=== PATIENT | female | born 1960 | race Caucasian/White ===

== ENCOUNTER 2023-03-04 14:22 | Emergency (ER) | payer OTHER, SELFPAY ==
[2023-03-04 14:43] VITALS: BP 92/55; PULSE 58; RESP 16; TEMP 36.6; O2SAT 96
--- NOTE | 2023-03-04 14:56 | ED.NAVMDI ---
HPI - Nausea/Vomiting/Diarrhea General Chief complaint: Nausea/Vomiting/Diarrhea Stated complaint: nausea/diarrhea/headache Time Seen by Provider: 03/04/23 14:57 Source: patient, RN notes reviewed and old records reviewed Mode of arrival: ambulatory Limitations: no limitations History of Present Illness HPI Narrative: 62 year old female who presents to express care with complaints of nausea and vomiting since Wednesday with reports vomiting at least 5 times daily and since yesterday she has had diarrhea, Patient reports that she has had one loose stool today but had at least 4 diarrhea stools yesterday. Patient reports that she just restarted back on her Ozempic one week ago and she had been off the mediation for a mouth- and started her dose back where she was on when she stopped medication due to problems with insurance coverage. Patient reports some cramping to her abdomen but denies any acute pain and denies any fevers. MD elicited complaint: nausea, vomiting, diarrhea and other (abdominal cramping) Pertinent past history: other (diabetic) Onset (ago): day(s) (3) Description of vomiting: food contents and watery Description of diarrhea: watery Associated nausea: Yes Related Data Home Medications Medication Instructions Recorded Confirmed atorvastatin 20 mg tablet mg 03/04/23 lisinopril 20 tablet 03/04/23 mg-hydrochlorothiazide 25 mg tablet pantoprazole 40 mg tablet,delayed mg PO 03/04/23 release semaglutide 0.25 mg or 0.5 mg (2 mg subcut 03/04/23 mg/3 mL) subcutaneous pen injector (Ozempic) trazodone 100 mg tablet mg 03/04/23 Allergies Allergy/AdvReac Type Severity Reaction Status Date / Time Penicillins Allergy Unknown Verified 04/14/16 13:36 Review of Systems Review of Systems: CONSTITUTIONAL: Denies fever, chills, or sweats. EYES: Denies visual changes, redness, or discharge. ENT: Denies rhinorrhea, congestion, sore throat, or otalgia. CARDIOVASCULAR: Denies chest pain, palpitations, or edema. RESPIRATORY: Denies cough or dyspnea. GASTROINTESTINAL: Denies abdominal pain reports some cramping, reports nausea, vomiting, or diarrhea. GENITOURINARY: Denies dysuria or hematuria.po SKIN: Denies rash or itching. MUSCULOSKELETAL: Denies back pain, joint pain, or myalgia. NEUROLOGIC: States dull headache, no numbness, or weakness. PSYCHIATRIC: Denies anxiety or depression. All systems reviewed & are unremarkable except as noted in HPI and below PMFSH Past Medical History Medical History (Updated 03/05/23 @ 00:01 by Jhon Hui) Arthritis Diabetes GERD (gastroesophageal reflux disease) Hypertension Surgical History Surgical History (Updated 03/04/23 @ 15:25 by Bonita Ngo NP) H/O tubal ligation History of hysterectomy Social History Social History (Updated 03/04/23 @ 15:27 by Bonita Ngo NP) Smoking status: Never smoker Alcohol intake: unknown Substance use type: does not use Gender identity (if verbalized by the patient): Female Comments At time of signature, agree with nursing past medical, surgical, social and family history. There is no relevant family history pertinent to the presenting complaint Exam Narrative: GENERAL: Well-appearing, well-nourished, and in no acute distress. HEAD: Normocephalic, atraumatic. EYES: PERRLA and EOMI. ENT: Nares clear, no rhinorrhea or epistaxis. Mucous membranes moist.TM's normal, throat pink with no swelling NECK: Supple.no lymphadenopathy CHEST: Clear to auscultation. No respiratory distress.SAO2 96% on room air HEART: Regular rate and rhythm. No murmur heard. Normal peripheral pulses. ABDOMEN: Soft, nontender to palpation, nondistended, normal active bowel sounds.episodes of nausea with vomiting and some diarrhea EXTREMITIES: Normal range of motion. No edema. SKIN: Warm, dry, no rash. NEURO: No focal deficits. Alert and oriented x3. Course Course Emergency Course: Patient is aware of diagnosis, underst
== END 2023-03-04 15:27 | disposition home or self-care (01) ==
PROVIDERS: Emergency Provider Registered Nurse; PCP Internal Medicine
DX: K52.9 Noninfective gastroenteritis and colitis, unspecified (principal); M19.90 Unspecified osteoarthritis, unspecified site; E11.9 Type 2 diabetes mellitus without complications; K21.9 Gastro-esophageal reflux disease without esophagitis; I10 Essential (primary) hypertension
CPT/HCPCS: 99203; G0463

== ENCOUNTER 2023-05-26 08:27 | Emergency (ER) | payer OTHER, SELFPAY ==
[2023-05-26 08:34] VITALS: BP 131/67; PULSE 61; RESP 16; TEMP 37; O2SAT 97
--- NOTE | 2023-05-26 08:49 | ED.URI ---
HPI - URI/Sore Throat General Chief Complaint: Upper Respiratory Infection Stated Complaint: Chest Congestion Time Seen by Provider: 05/26/23 08:50 Source: patient, RN notes reviewed and old records reviewed Mode of arrival: ambulatory Limitations: no limitations History of Present Illness HPI Narrative: 62 year old female presents to [facility] care with complaints of sore throat, headache,left ear pain,cough, sinus congestion which now feels like it is going to her chest for the past 5 days.. Patient reports past history of bronchitis in the past and was former smoker who quit 2 months ago after smoking for 40 years. Patient has taken Robitussin and also Advil for her symptoms.Patient reports that her grandchildren have been ill also and she had been around them prior to becoming ill herself. MD elicited complaint: cough, sore throat, rhinorrhea, nasal congestion and other (headache,left ear pain) Pertinent past history: other (bronchitis) Onset (ago): day(s) (5) Severity: moderate Description of mucous: yellow Able to tolerate fluids by mouth: Yes Treatments prior to arrival: ibuprofen and other (Robitussin cough syrup) Related Data Home Medications Medication Instructions Recorded Confirmed atorvastatin 20 mg tablet 20 mg PO DAILY 03/04/23 05/26/23 lisinopril 20 1 tablet PO DAILY 03/04/23 05/26/23 mg-hydrochlorothiazide 25 mg tablet pantoprazole 40 mg tablet,delayed 40 mg PO DAILY 03/04/23 05/26/23 release trazodone 100 mg tablet 100 mg PO DAILY 03/04/23 05/26/23 Allergies Allergy/AdvReac Type Severity Reaction Status Date / Time Penicillins Allergy Unknown Swelling Verified 05/26/23 08:48 Review of Systems Review of Systems: CONSTITUTIONAL: Denies malaise, chills, sweats, or fever. EYES: Denies visual changes, redness, or discharge. ENT: Reports rhinorrhea, congestion, sinus pain, left otalgia and sore throat. CARDIOVASCULAR: Denies chest pain, palpitations, or edema. RESPIRATORY: Reports cough.? Denies dyspnea. GASTROINTESTINAL: Denies abdominal pain, nausea, vomiting, diarrhea SKIN: Denies rash or itching. MUSCULOSKELETAL: Denies myalgia. NEUROLOGIC: Reports headache. All systems reviewed & are unremarkable except as noted in HPI and below [facility] Past Medical History Medical History (Updated 05/27/23 @ 08:17 by Bonita Ngo NP) Arthritis Diabetes Emphysema lung GERD (gastroesophageal reflux disease) Hyperlipidemia Hypertension Tarsal tunnel syndrome of left side surgical repair Surgical History Surgical History (Updated 03/04/23 @ 15:25 by Bonita Ngo NP) H/O tubal ligation History of hysterectomy Social History Social History (Updated 05/27/23 @ 08:15 by Bonita Ngo NP) Smoking status: Former smoker Additional smoking assessment comments: quit 2 months ago, smoked for 40 years Alcohol intake: unknown Substance use type: does not use Gender identity (if verbalized by the patient): Female Comments At time of signature, agree with nursing past medical, surgical, social and family history. There is no relevant family history pertinent to the presenting complaint Exam Narrative: GENERAL: Well-appearing, well-nourished, and in no acute distress. HEAD: Normocephalic EYES: PERRLA, conjunctivae clear ENT: Nares clear, turbinates edematous and erythematous, yellow discharge, sinus pressure and headache. Mucous membranes moist. TM pearly rush with dull light reflex bilaterally; no tragal tenderness. Oropharynx erythematous without lesions. Tonsils not enlarged and without exudate, no drooling, no hoarseness, no trismus, uvula midline.post nasal drainage. NECK: Supple. No lymphadenopathy CHEST: Clear to auscultation, breath sounds equal. No wheezing, rhonchi, rales, or stridor. No respiratory distress, speaks in full sentences.cough noted SAO2 97% on room air HEART: Regular rate and rhythm. No murmur heard. SKIN: Warm, dry, no rash. NE
== END 2023-05-26 09:08 | disposition home or self-care (01) ==
PROVIDERS: Emergency Provider Registered Nurse; PCP Internal Medicine
DX: J06.9 Acute upper respiratory infection, unspecified (principal); R05.9 Cough, unspecified; M19.90 Unspecified osteoarthritis, unspecified site; E11.9 Type 2 diabetes mellitus without complications; K21.9 Gastro-esophageal reflux disease without esophagitis; E78.5 Hyperlipidemia, unspecified; I10 Essential (primary) hypertension; J43.9 Emphysema, unspecified
CPT/HCPCS: 99213; G0463

== ENCOUNTER 2025-03-13 08:06 | Emergency (ER) | payer OTHER, SELFPAY ==
--- OUTSIDE RECORDS SUMMARY | 2024-10-12 09:00 | XMS_ITS ---
Author Organization [facility] Address [address] [place] [address] Care Team Providers Care School Aide Name Role Phone Julito Dawson Primary Care Provider Unavailab Tana Chery Unavailable [phone] REASON FOR VISIT yd,um specialist,cc Encounters Encounter Location Date Provider Diagnosis [facility] [address] [facility] [place] [address] 10/12/2024 Tana Osborne Plan Of Treatment No Information Progress Notes * Pia DAIDOB:1960 (64 yo F)Acc No.[id number]:10/12/2024 Progress Notes Patient: Pia STEPHENSON Appointment Provider: Linda OSBORNE MD :1960 A ge:63 Y S ex:Female Date:10/12/2024 Address:[facility] [address] [place], [place] [id number] Pcp:Julito Dawson Subjective: * Chief Complaints: * 1 . Yd,um specialist,cc. * Medical History: Objective: * Vitals: Assessment: Plan: * Treatment: * Billing Information: * Visit Code: * Procedure Codes: * Electronic signature of Tana Osborne MD on 03/13/2025 at 08:09 AM CDT Sign off status: Pending * Appointment Provider: Linda OSBORNE MD Date: 10/12/2024 Generated for Lissett zaragoza/Chidi/Camryn on: 03/13/2025 08:09 AM CDT
--- OUTSIDE RECORDS SUMMARY | 2025-03-13 08:09 | XMS_ITS | Clinical Summary ---
Author Organization [facility] Address [address] [place] [address] Care Team Providers Care Traffic Controller Cable Name Role Phone Tabitha Harris-CAMP PROGRAM DIRECTOR Primary Care Provider [phone] Source Comments [facility],non-owned Affiliates and Associated Physician Practices is amultiple site organization consisting of ambulatory clinics and hospital sitesin [place], [place], [place] and [place]. This disclosure is being madepursuant to the Care Everywhere program and may not contain all information available regarding this patient. Last updated 18.[facility] Allergies Active Allergy Reactions Criticality Noted Date Comments Codeine Itching Low 10/06/2017 Latex Urticaria 04/10/2015 Penicillins Swelling 04/10/2015 Medications * Be aware that medications may not be up to date on this document. Alwaysverify current medications with the patient. OMEPRAZOLE MAGNESIUM PO Take 20.6 mg by mouth Active traZODone (DESYREL) 100 MG tablet Take 100 mg by mouth at bedtime Active PRAVASTATIN SODIUM PO Active aspirin (ASPIRIN) 81 MG tablet Take 81 mg by mouth once daily Active albuterol HFA (PROVENTIL;SAIGE TOLIN;PROAIR) 108 (90 Base) MCG/ACT inhaler Inhale 2 puffs by mouth every 4 hours as needed for Wheezing 1 Inhaler 9 Active ezetimibe (Zetia) 10 MG tablet Take 1 (one) tablet by mouth once daily 5 Active amLODIPine (Norvasc) 5 MG tablet Take 1 (one) tablet by mouth once daily Active vitamin D, ergocalciferol , (Drisdol) 1.25 MG (20916 UT) capsule TAKE 1 CAPSULE EVERY WEEK BY ORAL ROUTE. 5 Active fluticasone propionate (Flonase) 50 MCG/ACT nasal spray SPRAY 2 SPRAYS INTO EACH NOSTRIL TWICE A DAY 4 Active furosemide (Lasix) 20 MG tablet TAKE 1 TABLET BY MOUTH EVERY DAY NEEDED FOR LEG SWELLING 5 Active lisinopril-hyd roCHLOROthiazi de (Prinzide; Zestoretic) 20-25 MG tablet Take 1 (one) tablet by mouth once daily 5 Active methocarbamol (Robaxin) 750 MG tablet 5 Active ondansetron, disintegrating , (Zofran ODT) [address] 1 TABLET TWICE A DAY BY TRANSLINGUAL ROUTE NEEDED, FOR NAUSEA. Active potassium chloride ER (Klor-Con M) 20 MEQ tablet TAKE 1 TABLET BY MOUTH EVERY DAY NEEDED FOR WHEN TAKING LASIX 5 Active gabapentin (NEURONTIN) 300 MG capsule Reported on 07/10/2016 5 025 Discontin ued(List Clean-Up) lisinopril (PRINIVIL; ZESTRIL) 20 MG tablet 5 025 Discontin ued(List Clean-Up) METFORMIN HCL PO 025 Discontin ued(List Clean-Up) Active Problems No known active problems Encounters Date Type Department Care Team Description 03/07/2025 9:30 AM CDT Office Visit [facility] - Rheumatology [address] [place] [address] [employer] [address] [place] [address] Deondre Lacey MD Polyarthralgia (Primary Dx); Osteoarthritis of multiple joints, unspecified osteoarthritis type; Myofascial pain; Cervicalgia 03/02/2025 Telephone [facility] - Rheumatology [address] [place], [place] [address] [facility] [address] [place] [address] Deondre Lacey MD Insurance Issue/question 02/26/2025 Telephone [facility] - Rheumatology [id number] [place], [place] [address] [address] [place] [address] Deondre Lacey MD Insurance Issue/question from Last 3 Months Family History Medical History Relation Name Comments CAD (Coronary Artery Disease) Father Hypertension Father Cancer Mother Cancer Sister Relation Name Status Comments Father Mother Sister Social History Tobacco Use Types Packs/Day Years Used Date Smoking Tobacco: Former Cigarettes 1 40 Smokeless Tobacco: Never Alcohol Use Standard Drinks/Week Comments Not Asked 0 (1 standard drink = 0.6 oz pur e alcohol) PHQ-2 Answer Date Recorded Patient Health Questionnaire-2 Score 1 03/07/2025 Comments No Sex and Gender Information Value Date Recorded Sex Assigned at Not on file Legal Sex Female 6:10 AM 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 Gender Identity Not on file Sexual Orientation Not on file Occupation Industry Job Start Date 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 Not on file No t on file Not on file Last Filed Vital Signs Vital Sign Reading Time Taken Comments Blood Pressure 142/82 03/07/2025 9:27 AM CDT Pulse 90 03/07/2025 9:27 AM CDT Temperature 36.9 C (98.4 F) 07/05/2019 9:30 AM 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 [address] [place] [address] [place] [id number] [facility] [address] [place] [address] Health Maintenance Due Date Last Done Comments COLOGUARD (AGES 45-75) - COLON CA SCREENING 1960 CT COLONOGRAPHY - COLON CA SCREENING 1962 FIT - COLON CA SCREENING 1962 FLEX SIG - COLON CA SCREENING 1962 HIV SCREENING 1977 HEPATITIS C SCREENING 11/20/1980 DTAP/TDAP/TD VACCINES (1 - Tdap) 1981 PNEUMOCOCCAL VACCINE 50+ (1 of 1 - PCV) 2012 ZOSTER VACCINE (1 of 2) 2012 COVID-19 VACCINE (1 - season) 2024 INFLUENZA VACCINE (#1) 2025 SCREENING FOR DIABETES 03/08/2026 , 03/08/2023, 04/07/2019, Additional history exists MAMMOGRAM 12/09/2026 12/09/2024, 11/17, 05/29/2023, Additional history exists COLON MONITORING 06/14/2034 06/14/2024 COLONOSCOPY - COLON CA SCREENING 06/14/2034 06/14/2024 Colorectal Cancer Screening 06/14/2034 Respiratory Syncytial Virus (RSV) Vaccine Pt: or over 60 yrs (1 - 1-dose 75+ series) 2037 DEPRESSION SCREENING Completed 03/07/2025 HEPATITIS B VACCINE Aged Out No longe r eligible based on patient's age to complete this topic HIB VACCINE Aged Out No longer eligi ble based on patient's age to complete this topic HPV VACCINE Aged Out No longer eligi ble based on patient's age to complete this topic MENINGOCOCCAL (Group B) VACCINE SHARED DECISION-MAKING Aged Out No longer eligible based on patient's age to complete this topic MENINGOCOCCAL GROUPS A/C/Y/W VACCINE Aged Out No longer eligible based on patient's age to complete this topic Insurance [facility] Address: [facility] [id number] [facility] Care Teams Traffic Controller Cable Relationship Specialty Start Date End Date Tabitha Harris APNP-EDWIN [address] [facility], [address] [place] [address] PCP - General Family Medicine 03/07/25
--- OUTSIDE RECORDS SUMMARY | 2025-03-13 08:09 | XMS_ITS | Clinical Summary ---
Author Organization [facility] Medical Office Building B Address [address] [place] [address] Care Team Providers Care Supervisor Machine Setter Name Role Phone Tabitha Harris MOLD PARTER Primary Care Provider Allergies Active Allergy Reactions Criticality Noted Date Comments Ernesto Inhibitors Other (See comments) Low 03/12/2017 slows heart rate. Codeine Itching Low 10/06/2017 Latex Hives Medium 10/06/2017 Guaifenesin Palpitations Low 04/20/2024 Has Mitral Valve Prolapse Penicillins Hives Reaction: Hives, Medications omeprazole (PriLOSEC) 20 mg capsule Take 1 capsule (20 mg total) by mouth daily Active lisinopril-hydroCH LOROthiazide (ZESTORETIC) 20-12.5 mg per tablet 9 Active traZODone (DESYREL) 100 mg tablet 9 Active methocarbamol (ROBAXIN) 750 mg tablet 9 Active aspirin 81 mg enteric coated tablet Take 1 tablet (81 mg total) by mouth daily Active albuterol HFA (PROVENTIL HFA,VENTOLIN HFA,PROAIR HFA) 90 mcg/actuation inhaler 9 Active atorvastatin (LIPITOR) 20 mg tablet 1 Active fluticasone propionate (FLONASE) 50 mcg/actuation nasal spray Administer into affected nostril(s) 6 Active diclofenac sodium (VOLTAREN) 1 % gel APPLY 2 GRAMS TO THE AFFECTED AREA(S) BY TOPICAL ROUTE 4 TIMES PER DAY Active ondansetron ODT (ZOFRAN-ODT) 4 mg disintegrating tablet LET 1 TABLET DISSOLVE ON TOP OF THE TONGUE TWICE A DAY NEEDED Active hydrocortisone (ANUSOL-HC) 2.5 % rectal cream For hemorrhoid management, squeeze small amount into rectum using internal applicator and also apply small amount externally to rectum up to twice daily as needed. 28 g 5 4 Active amLODIPine (NORVASC) 5 mg tablet Take 1 tablet (5 mg total) by mouth daily Active ciprofloxacin (CIPRO) 500 mg tablet Take 1 tablet (500 mg total) by mouth 2 (two) times a day 20 tablet 5 Active metroNIDAZOLE (FLAGYL) 500 mg tablet Take 1 tablet (500 mg total) by mouth 2 (two) times a day for 7 days 14 tablet 5 025 Active oxyCODONE-acetamin ophen (PERCOCET) 5-325 mg per tabletIndications: Pain Take 1-2 tablets by mouth every 6 (six) hours as needed for pain (1 tablet for mild to moderate pain or 2 tablets for severe pain) 15 tablet 5 Active docusate sodium (COLACE) 100 mg capsuleIndications :constipation Take 1 capsule (100 mg total) by mouth every 12 (twelve) hours 60 capsule 5 Active Active Problems Problem Noted Date Diagnosed Date Gastroesophageal reflux dise ase with esophagitis without hemorrhage 04/20/2024 Chronic superficial gastritis without bleeding 1 History of colonoscopy with polypectomy 04/20/20 24 Hemorrhoids 04/20/2024 History of colon polyps 04/20/2024 Encounters Date Type Department Care Team Description 03/10/2025 5:31 AM CDT - 03/10/2025 8:16 AM CDT Emergency [facility] Emergency Department [address] [place] [address] Chelsea Monzon MD Moore, Duane Harold, MD Abdominal pain (Primary Dx); Diverticulitis Discharge Disposition: Discharge to home or self care 12/25/2024 1:35 PM CDT - 12/25/2024 11:59 PM CDT Hospital Encounter [facility] Imaging Center [address] [place] [address] 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, unspecified whether ely shoshone or transplanted heart Discharge Disposition: Discharge to home or self care from Last 3 Months Surgical History Surgery Date Site/Laterality Comments TOTAL ABDOMINAL HYSTERECTOMY Hysterectomy, total FOOT SURGERY left foot surgery OTHER SURGICAL HISTORY dysplasia/uulvectomy partial BREAST CYST ASPIRATION 07/19/2013 - 07/18/2014 Right OOPHORECTOMY SECTION BREAST BIOPSY 07/10/2022 Left left stereo bx MITRAL VALVE REPLACEMENT ESOPHAGOGASTRODUODENOSCOPY COLONOSCOPY 06/14/2024 UPPER GASTROINTESTINAL ENDOSCOPY 06/14/2024 COLONOSCOPY 07/19/2017 - 07/18/2018 Medical History Medical History Date Comments Fibrocystic breast Depression Osteoarthritis Osteoporosis Peripheral neuropathy Mitral valve prolapse Fibromyalgia DJD (degenerative joint disease) Diverticulitis Hyperplastic colon polyp DM (diabetes mellitus) GERD (gastroesophageal reflux disease) HLD (hyperlipidemia) HTN (hypertension) LUCERO (obstructive sleep apnea) Valvular heart disease MVR Vitamin D deficiency Family History Medical History Relation Name Comments Colon cancer Other 1 Family history of Cancer, colon; Lung cancer Other 2 Family history of Cancer, lung; Arthritis Other 3 Cancer Other 3 Heart disease Other 3 Hypertension Other 3 Melanoma Other 3 Family history of Melanoma; Breast cancer Neg Hx Ovarian cancer Neg Hx Thyroid cancer Neg Hx Relation Name Status Comments Other 1 Other 2 Other 3 Social History Tobacco Use Types Packs/Day Years Used Date Smoking Tobacco: Former Smokeless Tobacco: Never Alcohol Use Standard Drinks/Week Comments Yes 0 (1 standard drink = 0.6 oz pur e alcohol) Personal Safety Answer Date Recorded Have you ever been in or are you currently in a harmful physical or emotional relationship or is someone making you feel afraid or unsafe? Denies 03/10/2025 Comments No Sex and Gender Information Value Date Recorded Sex Assigned at Not on file Legal Sex Female 11:[address] INSPECTOR Gender Identity Not on file Sexual Orientation Not on file Obstetrics History Para Term AB IAB SAB Ectopic Multiple Livin g Live Births 4 1 1 Date Outcome GA Total Labor Labor/2nd/3rd Weight Sex Type Anes PTL Jennifer A1 A5 Name Clin Term Last Filed Vital Signs Vital Sign Reading Time Taken Comments Blood Pressure 149/83 03/10/2025 5:28 AM CDT Pulse 74 03/10/2025 5:28 AM CDT Temperature 36.4 C (97.5 F) 03/10/2025 5:28 AM CDT Respiratory Rate 18 03/10/2025 5:28 AM CDT Oxygen Saturation 94% 03/10/2025 5:28 AM CDT Inhaled Oxygen Concentration - - Weight 81.6 kg (180 lb) 03/10/2025 5:28 AM CDT Height 152.4 cm (5') 03/10/2025 5:28 AM CDT Body Mass Index 35.15 03/10/2025 5:28 AM CDT Plan of Treatment Health Maintenance Due Date Last Done Comments Depression Screening 1962 Hepatitis C Screening 1962 Hepatitis B Screening 1980 Regular Well Visit/Exam 18-64 1980 Zoster Vaccine (1 of 2) 2012 Covid-19 Vaccine ( season) 2024 09/08/2021, 04/11/2021, 03/14/2021 Influenza Vaccine (#1) 2025 , 04/15/2023, 06/30/2022, Additional history exists Breast Cancer Screening-Mammogram 12/09/2025 12/09/2024, 05/29/2023, 04/18/2022, Additional history exists DTaP/Tdap/Td Vaccine (2 - Td or Tdap) 06/30/2026 06/30/2016 Colon Cancer Screening-Colonoscopy 06/14/2034 06/14/2024 Pneumococcal vaccine <65 Aged Out 01/06/2016 No longer eligible based on patient's age to complete this topic Colon Cancer Screening-CT Colonography Discontinued 06/14/2024 Colon Cancer Screening-DNA Stool Discontinued 06/14/2024 Colon Cancer Screening-FIT Discontinued 06/14/2024 Colon Cancer Screening-Sigmoidoscopy Discontinued 06/14/2024 Medical Devices Implanted Type Area Director Of Assessment Device Identifier Shelf Expiration Date Model / Serial / Lot Smarp [email or web address] Identifier 10ga Bx Site [id number] - [id number] - [id number] Implanted:Qty: 1 on 07/10/2022 by Bandar Nunez MD at [facility] Breast Left: Breast [employer] 05/14/2026 [id number] / [id number] Description:Implanted Left B reast 7:00 area 9cmfn Procedures Procedure Name Priority Date/Time Associated Diagnosis Comments URINALYSIS, MICROSCOPIC ONLY STAT 03/10/2025 7:01 AM CDT URINALYSIS AND REFLEX TO MICROSCOPIC AND CULTURE STAT 03/10/2025 7:[address] ABDOMEN PELVIS W CONTRAST ED 03/10/2025 7:00 AM CDT POCT GLUCOSE DEVICE Routine 03/10/2025 6 :05 AM CDT EGFR STAT 03/10/2025 5:38 AM CDT DIFFERENTIAL AUTO STAT 03/10/2025 5:3 8 AM CDT SEPSIS LACTATE WITH REFLEX STAT 03/10/2025 5:38 AM CDT COMPREHENSIVE METABOLIC PANEL STAT 03/10/2025 5:38 AM CDT CBC WITH AUTO DIFFERENTIAL STAT 03/10/2025 5:38 AM CDT BLOOD CULTURE STAT 03/10/2025 5:38 AM CDT BLOOD CULTURE STAT 03/10/2025 5:38 AM CDT US CAROTIDS DUPLEX BILATERAL Schedule Routine, Read Routine (OP Routine) 12/25/2024 2:25 PM CDT 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, unspecified whether ely shoshone or transplanted heart SCREENING MAMMOGRAM BILATERAL W [place] Schedule Routine, Read Routine (OP Routine) 12/09/2024 7:27 AM CDT Encounter for screening mammogram for malignant neoplasm of breast COLONOSCOPY 06/14/2024 9:[address] [employer]STRUCTION INSPECTOR from Last 3 Months or Most Recently Relevant to Health Maintenance Results * (ABNORMAL) Urinalysis reflex to microscopic and culture Urine (03/10/2025 7:01 AM CDT) Color, ur Straw Yellow Clarity, ur Clear Clear [facility] ([place]) Specific gravity, ur 1.009 1.003 - 1.030 [facility] ([place]) pH, urine 5.5 [facility] ([place]) Comment: Interpretive Data U rine pH is affected by diet, medications, systemic acid-base disturbances, and renal tubular function. pH may affect urinary stone formation. For example, urine pH below 6.0 may help reduce the tendency for calcium phosphate stones and pH greater than 6.0 may reduce the tendency for uric acid stone formation. Source: [facility] IMN Current Interpretive Data was last revised on 2017 Protein, ur ql Negative Negative [facility] ([place]) Glucose, ur ql Negative Negative [facility] ([place]) Ketones, ur Negative Negative [facility] ([place]) Bilirubin, ur Negative Negative [facility] ([place]) Blood, ur Negative Negative [facility] ([place]) Urobilinogen, ur <2.0 <2.0 mg/dL [facility] ([place]) Nitrite, ur Negative Negative [facility] ([place]) Leukocyte esterase, ur 3+(A) Negative [facility] ([place]) UA reflex comment Reflex to microscopic UA will be performed. [facility] ([place]) Urine 03/10/2025 7:01 AM CDT 03/10/2025 7:05 AM CDT us Chelsea Monzon MD LAB MICROBIOLOGY - GENERA L ORDERABLES Final Result EDUARDO RIVERA ([place]) 1 [facility] Department [place] [address] * (ABNORMAL) Urinalysis, microscopic only (03/10/2025 7:01 AM CDT) WBC, ur 6-10(A) 0 - 5 /HPF RBC, ur 0-2 0 - 2 /HPF [facility] ([place]) Bacteria, ur Trace(A) ED[facility]ARDO [facility] ([place]) Mucous, ur Present(A) [facility] A ([place]) Hyaline casts, ur 1-5 0 - 10 /LPF EDUARDO [facility] ([place]) Culture Reflex Comment Reflex conditions for urine culture (WBC >10) not met. ED[facility]ARDO [facility] ([place]) Urine 03/10/2025 7:01 AM CDT 03/10/2025 7:05 AM CDT us Chelsea Monzon MD LAB URINE ORDERABLES aMsha quach Result EDUARDO [facility] ([place]) 1 [facility] Department [place] [address] * CT Abdomen Pelvis W Contrast (03/10/2025 7:00 AM CDT) Anatomical Region Laterality Modality Body N/A Computed Tomogra phy 03/10/2025 7:07 AM CDT Narrative 03/10/2025 7:13 AM CDT EXAM DESCRIPTION: CT ABDOMEN PELVIS W CONTRAST REASON FOR STUDY: Abdominal pain, acute, nonlocalized Left lower quad pain for 4 days, history of diverticulitis TECHNIQUE: CT scan of the abdomen and pelvis performed with intravenous and without oral contrast using helical scanning technique with dynamic intravenous contrast injection. Reconstructed coronal and sagittal MPR images reviewed. All images stored on PACS. Automated exposure control was used as a dose optimization technique for this examination. CONTRAST TYPE/DOSE: 100mL of IOVERSOL 350 MG IODINE/ML INTRAVENOUS SYRINGE injected via intravenous COMPARISON: 06/07/2019 CT adrenal FINDINGS: LOWER CHEST: No significant pulmonary abnormalities. No effusion. LIVER: Normal size. No identified cystic or solid masses. GALLBLADDER: Normally distended BILE DUCTS: No intrahepatic or extrahepatic ductal dilatation. SPLEEN: Normal size. No focal lesions. PANCREAS: No identified cystic or solid masses. No significant calcifications. No adjacent inflammation or peripancreatic fluid collections. Pancreatic duct not dilated. ADRENALS: Nodular thickening bilaterally previously called adenomas on dedicated CT study. KIDNEYS/URINARY TRACT: No identified significant cystic or solid masses. No visualized stones. No hydronephrosis or hydroureter. Symmetric enhancement. Urinary bladder is unremarkable. GI: No dilated bowel loops. No obvious wall thickening. Normal appendix. Sigmoid colon demonstrates numerous diverticula. Subtle induration surrounds this region extends to the lateral pelvic sidewall suggesting inflammatory changes of acute diverticulitis though subtle. Small adjacent lymph nodes. No adjacent fluid or air collection to suggest abscess or free perforation. PERITONEUM: No ascites or free air. RETROPERITONEUM: No mass or adenopathy. REPRODUCTIVE: No significant abnormality. VASCULATURE: No abdominal aortic aneurysm. MUSCULOSKELETAL: No significant abnormality. OTHER: No other abnormality. IMPRESSION: Changes of acute diverticulitis sigmoid colon without evidence of abscess or free perforation. THIS IS AN ELECTRONICALLY VERIFIED FINAL REPORT 03/10/2025 7:13 AM - Electronically signed by Arvin Silva M.D. RB: CARLA Report ID: [id number] Reading Location: [place] [address] Procedure Note Arvin Silva MD - 03/10/2025 EXAM DESCRIPTION: CT ABDOMEN PELVIS W CONTRAST REASON FOR STUDY: Abdominal pain, acute, nonlocalized Left lower quad pain for 4 days, history of diverticulitis TECHNIQUE: CT scan of the abdomen and pelvis performed with intravenousand without oral contrast using helical scanning technique with dynamic intravenous contrast injection. Reconstructed coronal and sagittal MPRimages reviewed. All images stored on PACS. Automated exposure control was usedas a dose optimization technique for this examination. CONTRAST TYPE/DOSE: 100mL of IOVERSOL 350 MG IODINE/ML INTRAVENOUSSYRINGE injected via intravenous COMPARISON: 06/07/2019 CT adrenal FINDINGS: LOWER CHEST: No significant pulmonary abnormalities. No effusion. LIVER: Normal size. No identified cystic or solid masses. GALLBLADDER: Normally distended BILE DUCTS: No intrahepatic or extrahepatic ductal dilatation. SPLEEN: Normal size. No focal lesions. PANCREAS: No identified cystic or solid masses. No significant calcifications. No adjacent inflammation or peripancreatic fluidcollections. Pancreatic duct not dilated. ADRENALS: Nodular thickening bilaterally previously called adenomas on dedicated CT study. KIDNEYS/URINARY TRACT: No identified significant cystic or solid masses.No visualized stones. No hydronephrosis or hydroureter. Symmetricenhancement. Urinary bladder is unremarkable. GI: No dilated bowel loops. No obvious wall thickening. Normalappendix. Sigmoid colon demonstrates numerous diverticula. Subtle indurationsurrounds this region extends to the lateral pelvic sidewall suggesting inflammatory changes of acute diverticulitis though subtle. Small adjacent lymphnodes. No adjacent fluid or air collection to suggest abscess or freeperforation. PERITONEUM: No ascites or free air. RETROPERITONEUM: No mass or adenopathy. REPRODUCTIVE: No significant abnormality. VASCULATURE: No abdominal aortic aneurysm. MUSCULOSKELETAL: No significant abnormality. OTHER: No other abnormality. IMPRESSION: Changes of acute diverticulitis sigmoid colon without evidence of abscessor free perforation. THIS IS AN ELECTRONICALLY VERIFIED FINAL REPORT 03/10/2025 7:13 AM - Electronically signed by Arvin Silva M.D. RB: CARLA Report ID: [id number] Reading Location: [place] [address] Chelsea Monzon MD IMG CT PROCEDURES Final R esult * POCT glucose (03/10/2025 6:05 AM CDT) Glucose, POC 140 70 - 199 mg/dL Blood 03/10/2025 6:05 AM CDT 03/10/2025 6:05 AM CDT us Chelsea Monzon MD LAB POCT ORDERABLES - DEV ICE Final Result Performing Organization Address City/[facility]/ZIP Co de Phone Number EDUARDO RIVERA (TAD) 1 [facility] Department [place] [address] * Sepsis Lactate w/ Reflex (03/10/2025 5:38 AM CDT) Sepsis Lactate 0.9 0.7 - 2.0 mmol/L Blood 03/10/2025 5:38 AM CDT 03/10/2025 5:56 AM CDT us Chelsea Monzon MD LAB BLOOD ORDERABLES Masha l Result [facility] ([place]) 1 [facility] Department [place] [address] * eGFR (03/10/2025 5:38 AM CDT) [facility] eGFR >90 >=60 mL/min/1. 73 m2 Comment: Interpretive Data Reference Interval Normal >/= 90 mL/min/1.73m2 Mildly decreased* 60 - 89 mL/min/1.73m2 Mildly to moderately decreased 45 - 59 mL/min/1.73m2 Moderately to severely decreased 30 - 44 mL/min/1.73m2 Severely decreased 15 - 29 mL/min/1.73m2 Kidney Failure < 15 mL/min/1.73m2 *Relative to young adult level Estimated glomerular filtration rate is determined by the 2020 CKD-EPI equation recommended by the National Kidney Foundation (A Unifying Approach to GFR Estimation: Recommendations of the NKF-ASK Task Force on Reassessing the Inclusion of Race in Diagnosing Kidney Disease, JASN 2020). The CKD-EPI equation should not be used for patients with unstable renal function and has not been validated in children and those over 70. Current interpretive data was last reviewed 2021. Blood 03/10/2025 5:38 AM CDT 03/10/2025 5:56 AM CDT us Chelsea Monzon MD LAB BLOOD ORDERABLES Masha quach Result EDUARDO RIVERA ([place]) 1 [facility] Department [place] [address] * Differential, auto (03/10/2025 5:38 AM CDT) Pathologist [facility] Neutrophil abs 4.74 1.50 - 6.50 K/cumm Imm gran abs 0.02 0.00 - 0.10 K/cumm [facility] ([place]) Lymphocyte abs 1.87 0.80 - 3.30 K/cumm [facility] ([place]) Monocyte abs 0.57 0.20 - 0.80 K/cumm [facility] ([place]) Eosinophil abs 0.25 0.00 - 0.50 K/cumm [facility] ([place]) Basophil abs 0.02 0.00 - 0.10 K/cumm [facility] ([place]) Neutrophil pct 63.5 % [facility] ([place]) Comment: Interpretive Data Percent cell count reference ranges are not reported, since discordance with absolute values may lead to misinterpretation of CBC data. Current Interpretive Data was last revised on 2017. Imm gran pct 0.3 % [facility] ([place]) Comment: Interpretive Data Percent cell count reference ranges are not reported, since discordance with absolute values may lead to misinterpretation of CBC data. Current Interpretive Data was last revised on 2017. Lymphocyte pct 25.0 % [facility] ([place]) Comment: Interpretive Data Percent cell count reference ranges are not reported, since discordance with absolute values may lead to misinterpretation of CBC data. Current Interpretive Data was last revised on 2017. Monocyte pct 7.6 % [facility] ([place]) Comment: Interpretive Data Percent cell count reference ranges are not reported, since discordance with absolute values may lead to misinterpretation of CBC data. Current Interpretive Data was last revised on 2017. Eosinophil pct 3.3 % [facility] ([place]) Comment: Interpretive Data Percent cell count reference ranges are not reported, since discordance with absolute values may lead to misinterpretation of CBC data. Current Interpretive Data was last revised on 2017. Basophil pct 0.3 % [facility] ([place]) Comment: Interpretive Data Percent cell count reference ranges are not reported, since discordance with absolute values may lead to misinterpretation of CBC data. Current Interpretive Data was last revised on 2017. Blood 03/10/2025 5:38 AM CDT 03/10/2025 5:56 AM CDT us Chelsea Monzon MD LAB BLOOD ORDERABLES Masha quach Result EDUARDO RIVERA ([place]) 1 [facility] Department [place] [address] * (ABNORMAL) CBC with auto differential (03/10/2025 5:38 AM CDT) WBC 7.47 3.80 - 9.90 K/cumm Hgb 12.5 11.9 - 15.5 g/dL [facility] ([place]) Hct 38.2 35.6 - 45.5 % [facility] ([place]) Plt 410(H) 150 - 400 K/cumm [facility] ([place]) MPV 8.9(L) 9.1 - 12.3 fL [facility] ([place]) RBC 4.34 3.90 - 5.20 M/cumm [facility] ([place]) MCV 88.0 81.3 - 96.4 fL [facility] ([place]) MCH 28.8 27.1 - 33.3 pg [facility] ([place]) MCHC 32.7 32.3 - 35.7 g/dL [facility] ([place]) RDW CV 14.8 11.1 - 14.9 % [facility] ([place]) RDW SD 48.0 35.7 - 48.1 fL [facility] ([place]) NRBC abs 0.00 0.00 - 0.01 K/cumm [facility] ([place]) Blood 03/10/2025 5:38 AM CDT 03/10/2025 5:56 AM CDT Chelsea Monzon MD LAB BLOOD ORDERABLES Masha quach Result [facility] ([place]) 1 [facility] Department [place] [address] * (ABNORMAL) Comprehensive metabolic panel (03/10/2025 5:38 AM CDT) Sodium 143 135 - 145 mmol/L [facility] ([place] Potassium, pl 3.4 3.3 - 4.9 mmol/L [facility] ([place]) Chloride 100 97 - 110 mmol/L [facility] ([place]) CO2 27 22 - 32 mmol/L [facility] ([place]) Anion gap 16(H) 2 - 15 mmol/L [facility] ([place] BUN 14 6 - 25 mg/dL [facility] ([place]) Creatinine 0.74 0.60 - 1.10 mg/dL [facility] ([place]) Glucose 142 70 - 199 mg/dL [facility] ([place]) Comment: Interpretive Data Fasting glucose >/= 126 mg/dl is diagnostic for diabetes. Fasting is defined as no caloric intake for at least 8 hours. Fasting glucose between 100 mg/dl to 125 mg/dl is diagnostic of prediabetes. In a patient with classic symptoms of hyperglycemia or hyperglycemic crisis, a random glucose >/= 200 mg/dl is diagnostic for diabetes. In the absence of unequivocal hyperglycemia, results should be confirmed by repeat testing. The classification and Diagnosis of Diabetes Diabetes Care 2021; 46: S19-S40. Current interpretive data was last revised 2022. Calcium 8.9 8.5 - 10.3 mg/dL [facility] ([place]) Bilirubin, total 0.4 0.1 - 1.2 mg/dL [facility] ([place]) Protein, pl 7.0 6.5 - 8.5 g/dL [facility] ([place]) Albumin 4.2 3.5 - 5.0 g/dL [facility] ([place]) Alk phos 55 40 - 130 Units/L [facility] ([place]) ALT 28 7 - 45 Units/L [facility] ([place]) AST 22 10 - 45 Units/L [facility] ([place]) Comment:Hemolysis present. R esults may be affected. Blood 03/10/2025 5:38 AM CDT 03/10/2025 5:56 AM CDT Chelsea Monzon MD LAB BLOOD ORDERABLES Masha quach Result [facility] ([place]) 1 [facility] Department [place] [address] * US Carotids Bilateral (12/25/2024 2:25 PM CDT) Anatomical Region Laterality Modality Vascular Bilateral Ultrasound 01/01/2025 7:42 AM CDT Narrative 01/01/2025 7:43 AM CDT EXAM DESCRIPTION: US CAROTIDS DUPLEX BILATERAL REASON FOR STUDY: Atherosclerosis of ely shoshone coronary arteries. TECHNIQUE: Sheikh scale, color Doppler and spectral Doppler imaging were performed. Velocity criteria are extrapolated from diameter as defined by the Society of Radiologists in Ultrasound Consensus Conference. All velocity measurements are in cm/sec. COMPARISON: None. FINDINGS: Right: Mild intimal thickening and plaque are seen. Distal CCA Peak Systolic Velocity: 67 Distal CCA End Diastolic Velocity: 22 Peak ICA Systolic Velocity: 88 ICA End Diastolic Velocity: 31 Peak ICA/CCA Systolic Ratio: 1.3 Right Vertebral Artery: Antegrade direction of flow. Left: Mild intimal thickening and plaque are seen. Distal CCA Peak Systolic Velocity: 75 Distal CCA End Diastolic Velocity: 26 Peak ICA Systolic Velocity: 94 ICA End Diastolic Velocity: 29 Peak ICA/CCA Systolic Ratio: 1.3 Left Vertebral Artery: Antegrade direction of flow. IMPRESSION: 1. Velocities correspond to a less than 50 percent diameter stenosis of the right ICA. 2. Velocities correspond to a less than 50 percent diameter stenosis of the left ICA. 3. Antegrade direction of flow of the bilateral vertebral arteries. REFERENCE: Consensus Panel Sheikh-Scale and Doppler US Criteria for Diagnosis of ICA Stenosis. No stenosis: ICA PSV <125*, 0 percent plaque, ICA/CCA PSV Ratio <2.0, ICA EDV <40*. <50 percent stenosis: ICA PSV <125*, <50 percent plaque, ICA/CCA PSV Ratio <2.0, ICA EDV <40*. 50-69 percent stenosis: ICA PSV 125-230*, >=50 percent plaque, ICA/CCA PSV Ratio 2.0-4.0, ICA EDV 40-100*. >=70 percent but less than near occlusion >230, >=50 percent plaque, ICA/CAA PSV Ratio >4.0, ICA EDV >100*. *cm/sec Plaque estimate (diameter reduction) with sheikh-scale and color Doppler US. RSNA 2002 THIS IS AN ELECTRONICALLY VERIFIED FINAL REPORT 01/01/2025 7:43 AM - Electronically signed by Marek Denis M.D. CH: LEX Report ID: [id number] Reading Location: [place] [address] Procedure Note Marek Denis Jr., MD - 01/01/2025 EXAM DESCRIPTION: US CAROTIDS DUPLEX BILATERAL REASON FOR STUDY: Atherosclerosis of ely shoshone coronary arteries. TECHNIQUE: Sheikh scale, color Doppler and spectral Doppler imaging were performed. Velocity criteria are extrapolated from diameter as defined bythe Society of Radiologists in Ultrasound Consensus Conference. All velocity measurements are in cm/sec. COMPARISON: None. FINDINGS: Right: Mild intimal thickening and plaque are seen. Distal CCA Peak Systolic Velocity: 67 Distal CCA End Diastolic Velocity: 22 Peak ICA Systolic Velocity: 88 ICA End Diastolic Velocity: 31 Peak ICA/CCA Systolic Ratio: 1.3 Right Vertebral Artery: Antegrade direction of flow. Left: Mild intimal thickening and plaque are seen. Distal CCA Peak Systolic Velocity: 75 Distal CCA End Diastolic Velocity: 26 Peak ICA Systolic Velocity: 94 ICA End Diastolic Velocity: 29 Peak ICA/CCA Systolic Ratio: 1.3 Left Vertebral Artery: Antegrade direction of flow. IMPRESSION: 1. Velocities correspond to a less than 50 percent diameter stenosisof the right ICA. 2. Velocities correspond to a less than 50 percent diameter stenosisof the left ICA. 3. Antegrade direction of flow of the bilateral vertebral arteries. REFERENCE: Consensus Panel Sheikh-Scale and Doppler US Criteria forDiagnosis of ICA Stenosis. No stenosis: ICA PSV <125*, 0 percent plaque, ICA/CCA PSV Ratio <2.0, ICAEDV <40*. <50 percent stenosis: ICA PSV <125*, <50 percent plaque, ICA/CCA PSV Ratio <2.0, ICA EDV <40*. 50-69 percent stenosis: ICA PSV 125-230*, >=50 percent plaque, ICA/CCA PSV Ratio 2.0-4.0, ICA EDV 40-100*. >=70 percent but less than near occlusion >230, >=50 percent plaque,ICA/CAA PSV Ratio >4.0, ICA EDV >100*. *cm/sec Plaque estimate (diameter reduction) with sheikh-scale and color DopplerUS. RSNA 2002 THIS IS AN ELECTRONICALLY VERIFIED FINAL REPORT 01/01/2025 7:43 AM - Electronically signed by Marek Denis M.D. CH: LEX Report ID: [id number] Reading Location: [id number] us Provider Transcribed Order IMG US PROCEDURES Fin al Result * Screening Mammogram Bilateral W Kendall (12/09/2024 7:27 AM CDT) Anatomical Region Laterality Modality Breast Bilateral Mammography Impressions 12/12/2024 8:10 AM CDT Bilateral No evidence of malignancy in either breast. OVERALL BI-RADS FINAL ASSESSMENT: 1 - Negative RECOMMENDATION: Recommend bilateral annual screening mammography. Narrative 12/12/2024 8:10 AM CDT EXAMINATION: Screening Mammogram Bilateral W Kendall: 12/09/2024 COMPARISON: Relevant prior studies available at the time of interpretation were reviewed. TECHNIQUE: Mammography was performed with 2D and digital breast tomosynthesis (DBT) images. CAD was utilized. BREAST PARENCHYMAL COMPOSITION: The breasts are heterogeneously dense, which may obscure small masses. FINDINGS: There is a biopsy marker clip in the left breast. There is no new suspicious finding in either breast on mammogram. us Provider Transcribed Order [facility] MAMMO PROCEDURES Final Result * Colonoscopy (06/14/2024 9:[address] CONSTRUCTION INSPECTOR) Anatomical Region Laterality Modality Other Narrative Procedure Note Binh Rendon, DO - 06/14/2024 9:32 AM CST [facility] Patient Name: Pia Hummel Procedure Date: 06/14/2024 9:32 AM Date of : 1960 Admit Type: Outpatient Age: 63 Gender: Female Attending MD: Binh Rendon D.O. Room: [facility] ENDOSCOPY ROOM 3 Note Status: Finalized Patient Profile: Last Colonoscopy: 2017. Procedure: Colonoscopy Indications: High risk colon cancer surveillance: Personalhistory of colonic polyps Referring MD: Colt Brennan M.D. Providers: Binh Rendon D.O. Impression: - The examined portion of the ileum was normal. - One 3 mm polyp in the transverse colon, removedwith a cold biopsy forceps. Resected and retrieved. - Multiple polyps in the sigmoid colon and rectum, removed with a cold biopsy forceps. Resected and retrieved. - Diverticulosis in the entire examined colon. Recommendation: - Discharge patient to home. - Resume previous diet. - Continue present medications. - Await pathology results. - Repeat colonoscopy in 5 years for surveillance. - Patient has a contact number available for emergencies. The signs and symptoms of potential delayed complications were discussed with thepatient. Return to normal activities tomorrow. Written discharge instructions were provided to thepatient. - Return to GI office as previously scheduled. Medicines: Monitored Anesthesia Care Complications: No immediate complications. Estimated Blood Loss: Estimated blood loss was minimal. Procedure: Pre-Anesthesia Assessment: - As per anesthesia. The benefits, risks and alternatives of theprocedure and sedation were discussed and informed consentwas obtained. All questions were answered. Please referto the signed informed consent document in the medical record. The bowel preparation used was Miralax and bisacodyl tablets via split dose instruction. The scope was passed under direct vision. The Pediatric Colonoscope PCF-H190L [id number] was introducedthrough the anus and advanced to the 5 cm into the ileum.The terminal ileum, ileocecal valve, appendicealorifice, and rectum were photographed. The colonoscopy was performed without difficulty. The patient tolerated the procedure fairly well. The quality of the bowel preparation was good. Findings: The perianal and digital rectal examinations were normal. The terminal ileum appeared normal. A 3 mm polyp was found in the transverse colon. The polyp was removed with a cold biopsy forceps. Resection and retrieval were complete. Multiple semi-pedunculated polyps were found in the sigmoid colon and rectum. Several of these polyps were removed with a cold biopsyforceps. Resection and retrieval were complete. A few diverticuli diverticula were found in the entire colon. No additional abnormalities were found on retroflexion. Electronically signed by Binh Rendon M.D. Binh Rendon D.O. 06/14/2024 10:37:51 AM Number of Addenda: 0 Note Initiated On: 06/14/2024 9:32 AM Procedure Code(s): --- Professional --- 08532, Colonoscopy, flexible; with biopsy, single or multiple --- Technical --- 54206, Colonoscopy, flexible; with biopsy, single or multiple Diagnosis Code(s): --- Professional --- Z86.010, Personal history of colonic polyps D12.3, Benign neoplasm of transverse colon (hepatic flexure orsplenic flexure) D12.5, Benign neoplasm of sigmoid colon K57.30, Diverticulosis of large intestine without perforation orabscess without bleeding --- Technical --- Z86.010, Personal history of colonic polyps D12.3, Benign neoplasm of transverse colon (hepatic flexure orsplenic flexure) D12.5, Benign neoplasm of sigmoid colon K57.30, Diverticulosis of large intestine without perforation orabscess without bleeding CPT copyright 2020 [employer]. All rights reserved. The codes documented in this report are preliminary and upon access registrar reviewmay be revised to meet current compliance requirements. Recognized by the [employer] for promoting quality in endoscopy Binh Rendon DO ENDOSCOPY PROCEDURES Final Res ult from Last 3 Months or Most Recently Relevant to Health Maintenance [facility] [id number] Member Subscriber Plan / Payer (Ef fective 2021-Present) Name:Pia Hummel Member ID:[id number] Relation to Subscriber:Self Name:Pia Hummel Subscriber ID:[id number] Payer ID:[id number] Type:[employer] HMO/PPO Address: [employer] CLAIMS [address] [place] [id number] [facility] [id number] Member Subscriber Plan / Payer (Ef fective 2021-Present) Name:Pia Hummel Anders Member ID:[id number] Relation to Subscriber:Self Name:Pia Hummel Subscriber ID:[id number] Payer ID:[id number] Type:HE[employer]LINK HMO/PPO Address: [employer] CLAIMS [address] [place] [id number] [facility] [id number] Member Subscriber Plan / Payer (Ef fective 2021-Present) Name:Lenchou[place] Pia Anders Member ID:[id number] Relation to Subscriber:Self Name:Pia Hummel Subscriber ID:[id number] Payer ID:[id number] Type:HE[employer]LINK HMO/PPO Address: [employer] CLAIMS [address] [place] [phone] Advance Directives For more information, please contact: [phone] * Full Code (Latest Code Status on File) Date Activated Date Inactivated Comments 06/14/2024 9:12 AM 06/14/2024 3:19 PM * Full Code Date Activated Date Inactivated Comments 06/14/2024 9:12 AM 06/14/2024 9:12 AM Care Teams Supervisor Machine Setter Relationship Specialty Start Date End Date Tabitha Harris NP [address] [place] [address] DR TERRY B [facility] [address] [place] [address] PCP - General Nurse Practitioner 09/30/24
--- OUTSIDE RECORDS SUMMARY | 2025-03-13 08:09 | XMS_ITS | Clinical Summary ---
Author Organization [facility] Address [address], [address] [address] Phone Care Team Providers Care Motor Vehicle Salesperson Name Role Phone Colt Brennan MD Primary Care Provider [phone] Mahamed Moreno DPM Unavailable [phone] Allergies Active Allergy Reactions Criticality Noted Date Comments Ernesto Inhibitors Other (see Comments) 03/12/2017 slows heart rate. Latex Hives 04/10/2015 Penicillins Swelling 04/10/2015 Medications FLUoxetine (PROZAC) 20 MG Capsule TAKE 1 CAPSULE(S) EVERY DAY BY ORAL ROUTE. 1 7 Active fluticasone (FLONASE) 50 MCG/ACT Suspension by Nasal route. 6 Active lisinopril (PRINIVIL, ZESTRIL) 20 MG Tablet TAKE 1 TABLET BY MOUTH EVERY DAY MUST KEEP APPOINTMENT 0 7 Active pravastatin (PRAVACHOL) 20 MG Tablet Take 20 mg by mouth daily. 0 7 Active traZODone (DESYREL) 100 MG Tablet Take 100 mg by mouth nightly. Active Aspirin 81 MG Tablet Take 81 mg by mouth daily. Active Loratadine 10 MG Capsule Take 10 mg by mouth daily as needed. Active eszopiclone (LUNESTA) 1 MG Tablet Take one tablet to help you sleep AFTER you have arrived at the sleep lab. If needed, you may take another tablet 1 hour later. Do NOT take this medicine unless you are in the sleep lab. 2 Tab 7 Active Additional Information Patient not taking.Reported on 02/17/2017 Polysacch Fe Cmp-Fe Heme Poly (FEOSOL BIFERA) 28 MG TabletIndicatio ns:PLMD (periodic limb movement disorder),Iron metabolism disorder 1 tablet by mouth once daily with food; Only take this if you cannot tolerate the cheaper Iron sulfate type OTC products. (If you tolerate this well, it is usually found cheaper on Amazon) 7 Active Additional Information Patient not taking.Reported on 05/31/2017 traMADol (ULTRAM) 50 MG Tablet Take 1 Tab by mouth every 6 hours as needed for Pain. 20 Tab 8 Active Additional Information Patient not taking.Reported on 07/18/2019 ibuprofen (MOTRIN) 600 MG Tablet Take 1 Tab by mouth every 6 hours as needed for Fever or Pain. 60 Tab 8 Active Additional Information Patient not taking.Reported on 07/18/2019 omeprazole (PRILOSEC) 20 MG CAPSULE DELAYED RELEASE Take 20 mg by mouth daily. Active metroNIDAZOLE (FLAGYL) 500 MG Tablet Take 1 Tab by mouth 3 times daily. 30 Tab 9 Active Additional Information Patient not taking.Reported on 07/18/2019 methocarbamol (ROBAXIN) 750 MG Tablet 9 Active lisinopril-hydr oCHLOROthiazide (PRINZIDE, ZESTORETIC) 20-12.5 MG Tablet 9 Active gabapentin (NEURONTIN) 600 MG Tablet 600 mg 3 times daily. 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 Class 2 severe obesity due t o excess calories with serious comorbidity and body mass index (BMI) of 38.0 to 38.9 in adult 07/21/2019 Vitamin D insufficiency 03/12/2017 Chronic seasonal allergic rhinitis due to pollen 03/12/2017 DNS (deviated nasal septum) 03/12/2017 Laryngopharyngeal reflux 03/12/2017 Pachyderma of larynx 03/12/2017 Sensorineural hearing loss of both ears 03/12/20 17 Primary osteoarthritis of both feet 02/17/2017 Diabetic polyneuropathy asso ciated with type 2 diabetes mellitus 02/17/2017 Pes planus of both feet 02/17/2017 Equinus contracture of left ankle 02/17/2017 Equinus contracture of right ankle 02/17/2017 Tinnitus 02/11/2017 Hypertrophy of inferior nasal turbinate 02/12/20 17 PNAR (perennial non-allergic rhinitis) 7 Dysphagia, pharyngoesophageal phase 02/11/2017 Snoring 02/11/2017 Persistent hypersomnia 02/11/2017 PLMD (periodic limb movement disorder) 7 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 Weight gain 02/11/2017 Family History Medical History Relation Name Comments Hypertension Father Diabetes Maternal Grandfather Stroke Maternal Grandmother Cancer Mother lung Lung Cancer Mother Cancer Sister skin Relation Name Status Comments Father Alive Maternal Grandfather Maternal Grandmother Mother Sister Social History Tobacco Use Types Packs/Day Years Used Date Smoking Tobacco: Former Cigarettes Q uit: 06/06/1979 E-Vapor with Nicotine Smokeless Tobacco: Never Tobacco Cessation:Counseling Given: No Alcohol Use Standard Drinks/Week Comments Yes 0 (1 standard drink = 0.6 oz pur e alcohol) 1 drink per month Comments No Sex and Gender Information Value Date Recorded Sex Assigned at Not on file Legal Sex Female 7:26 PM CDT Gender Identity Not on file Sexual Orientation Not on file 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 Not on file Not on file Not on file Last Filed Vital Signs Vital Sign Reading Time Taken Comments Blood Pressure 114/72 08/23/2019 8:53 AM [employer] Pulse 70 08/23/2019 8:53 AM [employer] Temperature 36 C (96.8 F) 08/23/2019 8:53 AM [employer] Respiratory Rate 18 08/23/2019 8:53 AM [employer] Oxygen Saturation 97% 08/23/2019 8:53 AM [employer] Inhaled Oxygen Concentration - - Weight 86.2 kg (190 lb) 08/23/2019 8:53 AM [employer] Height 152.4 cm (5') 08/23/2019 8:53 AM [employer] Body Mass Index 37.11 08/23/2019 8:53 AM [employer] Plan of Treatment Health Maintenance Due Date Last Done Comments Diabetes: Eye Exam 1960 Diabetes: Foot Exam 1960 Diabetes: Hemoglobin A1c 1960 Hepatitis C Virus (HCV) Screening 1960 Cologuard 11/26/2007 Immunochemical Fecal Occult Blood 11/26/2007 Zoster Immunization (1 of 2) 2012 Pneumococcal Immunization (50+ years) (2 of 2 - PCV) 01/05/2017 01/06/2016 Diabetes: Nephropathy Screening 04/07/2020 04/07/2019 Colonoscopy 08/23/2022 08/23/2017, 10/07/2010 Colorectal Cancer Screening 08/23/2022 Respiratory Syncytial Virus (RSV) Immunization (Adult) (1 - Risk 60-74 years 1-dose series) 2022 SARS-COV-2 Immunization ( season) 2024 09/08/2021, 04/11/2021, 03/14/2021 Mammogram 05/29/2024 05/29/2023, 1007/2021, 02/08/2021, Additional history exists Influenza Immunization (#1) 03/19/202503/20, 06/30/2022, 04/28/2021, Additional history exists Pneumococcal Immunization Combined Discontinued 01/06/2016 DTaP/Tdap/Td Immunization Discontinued 06/30/2016 TdaP Immunization Completed 06/30/2016 Hepatitis B Immunization Aged Out No longer eligible based on patient's age to complete this topic Human Papillomavirus (HPV) Immunization Aged Out No longer eligible based on patient's age to complete this topic Meningococcal Immunization (ACWY) Aged Out No longer eligible based on patient's age to complete this topic Rotavirus Immunization Aged Out No lo nger eligible based on patient's age to complete this topic Procedures Procedure Name Priority Date/Time Associated Diagnosis Comments CMP (COMPREHENSIVE METABOLIC PANEL) STAT 04/07/2019 4:05 PM CDT HM COLONOSCOPY Routine 10/07/2010 from Last 3 Months or Most Recently Relevant to Health Maintenance Results * (ABNORMAL) CMP (Comprehensive Metabolic Panel) (04/07/2019 4:05 PM CDT) SODIUM 139 136 - 144 mmol/L 04/07/2019 5:00 PM T [facility] POTASSIUM 3.6 3.5 - 5.1 mmol/L 04/07/2019 5:00 PM [facility] CHLORIDE 100 100 - 110 mmol/L 04/07/2019 5:00 PM [facility] CO2, VENOUS 27 22 - 32 mmol/L 04/07/2019 5:00 PM T [facility] ANION GAP 15.6 8.0 - 20.0 mmol/L 04/07/2019 5:00 PM T [facility] GLUCOSE 99 70 - 99 mg/dL 04/07/2019 5:00 PM [facility] BUN 16 6 - 20 mg/dL 04/07/2019 5:00 PM [facility] CREATININE, BLOOD 0.55(L) 0.60 - 1.10 mg/dL 04/07/2019 5:00 PM [facility] BUN/CREATININE RATIO 29(H) 12 - 20 ratio 04/07/2019 5:00 PM [facility] TOTAL PROTEIN 6.9 6.0 - 8.3 g/dL 04/07/2019 5:00 PM [facility] ALBUMIN 4.1 3.5 - 5.2 g/dL 04/07/2019 5:00 PM [facility] Comment: The colormetric methods used for the determination of Albumin may lead to falsely elevated test results in patients suffering from renal failure or insufficiency due to interference with other proteins. A/G RATIO 1.5 1.0 - 2.0 04/07/2019 5:00 PM [facility] CALCIUM 9.5 8.9 - 10.3 mg/dL 04/07/2019 5:00 PM [facility] T BILI <=0.2 <=1.2 mg/dL 04/07/2019 5:00 PM T [facility] SGOT (AST) 12 <=32 U/L 04/07/2019 5:[address] [facility] SGPT (ALT) 14 <=33 U/L 04/07/2019 5:[address] PM [address] [facility] ALKALINE PHOSPHATASE 50 35 - 105 U/L 04/07/2019 5:[address] PM [address] [facility] GFR, EST. NONAFRICAN >60 >=60 04/07/2019 5:[address] PM [address] [facility] GFR, EST. >60 >=60 019 5:[address] Comment: Creatinine Clearance is the preferred criteria for selecting drug dose adjustments in renally impaired patients. The GFR is provided as additional pertinent clinical information. GFR is reported in mL/min/1.73 sq m. Blood specimen (specimen) Venipuncture / Unknown 04/07/2019 4:05 PM CDT 04/07/2019 4:37 PM CDT us Seun Vargas MD CHEMISTRY ORDERABLES Final Result [facility] [address] [place] [address] * COLONOSCOPY (10/07/2010) Tim Tellez MD PROCEDURE/MINOR SURGICAL OR DERABLES Final Result from Last 3 Months or Most Recently Relevant to Health Maintenance Insurance [facility] Care Teams Motor Vehicle Salesperson Relationship Specialty Start Date End Date Colt Brennan MD [address] [place] [address] PCP - General Internal Medicine 02/11/17 Mahamed Moreno DPM [address] [place] [address] Consulting Physician Podiatry 02/17/17
--- OUTSIDE RECORDS SUMMARY | 2025-03-13 08:09 | XMS_ITS | Patient Health Record ---
Author Organization [facility] Address [address] [facility] [address] [place] [address] Care Team Providers Care Cigar Bander Name Role Phone Julito Dawson Primary Care Provider UnavailTana Sanchez [phone] Reason For Referral No Information Encounters Encounter Location Date Provider Diagnosis [facility] [address] [facility] [address] [place] [address] 10/02/2024 Tana Mustafa Plan Of Treatment No Information Insurance Providers Payer Name Payer Address Payer Phone Subscriber Number Group Number Insured Name Patient Relationship to Insured Coverage Start Date Coverage End Date [employer] [address] [place] [address] [phone] [id number] Pia Hummel Self - patient is the insured
--- OUTSIDE RECORDS SUMMARY | 2025-03-13 08:09 | XMS_ITS | Encounter Summary ---
Author Organization [facility] Address [address] [place] [address] Care Team Providers Care Habilitative Interventionist Name Role Phone Colt Brennan MD Primary Care Provider [phone] Tabitha Harris NP Primary Care Provider Reason for Visit * Reason Onset Date Comments Scheduling Appointments 02/07/2021 Confirmi ng mammogram appt- no answer Encounter Details Date Type Department Care Team (Late st Contact Info) Description 02/07/2021 Telephone [facility] [address] [place] [id number] [address] Medrano RT Scheduling Appointments (Confirming mammogram appt- no answer ) Social History Tobacco Use Types Packs/Day Years Used Date Smoking Tobacco: Former Smokeless Tobacco: Never Alcohol Use Standard Drinks/Week Comments Yes 0 (1 standard drink = 0.6 oz pur e alcohol) Comments No Sex and Gender Information Value Date Recorded Sex Assigned at Not on file Legal Sex Female 11:59 PM HVAC COMMERCIAL SALESPERSON Gender Identity Not on file Sexual Orientation Not on file documented as of this encounter Plan of Treatment Not on file documented as of this encounter Visit Diagnoses Not on filedocumented in this encounter Additional Health Concerns Infection Onset Date Last Indicated Resolved Time COVID: Suspected 05/07/2021 05/07/2021 05/07/2021 9:33 AM CDT COVID: Suspected 03/08/2023 03/08/2023 03/08/2023 12:31 PM CDT documented as of this encounter Care Teams Habilitative Interventionist Relationship Specialty Start Date End Date Colt Brennan MD [address] [place] [address] PCP - General 10/06/17 09/29/24 Tabitha Harris NP [address] [facility] [address] TERRY B [address] [address] PCP - General Nurse Practitioner 09/30/24 documented as of this encounter
[2025-03-13 08:23] VITALS: BP 141/89; PULSE 64; RESP 16; TEMP 36.3; O2SAT 99
--- NOTE | 2025-03-13 08:30 | ED_ITS ---
HPI - Abdominal Pain General Chief Complaint: Abdominal Pain Stated Complaint: Vomiting/Diarrhea/Weak History of Present Illness HPI narrative: Patient presents for evaluation of GI symptoms for last week. She reports nausea, vomiting, diarrhea and left lower quadrant pain. She went to the ER at [facility] and was diagnosed with diverticulitis. She was placed on colace, percocet, flagyl and cipro. She has been unable to keep the medications down. She reports chills without fever. No urinary symptoms. She states her abdominal pain was previous radiating into the right side of her abdomen. It is no longer doing that. She rates her current pain as 5/10 in severity. She is diabetic but not on medication for it. She does not check her BS. Related Data Home Medications ?Medication ?Instructions ?Recorded ?Confirmed ?Last Taken ?Type atorvastatin 20 mg tablet 20 mg PO DAILY 03/04/2303/10 Unknown History lisinopril 20 1 tablet PO DAILY 03/04/23 1 07/26/22 Unknown History mg-hydrochlorothiazide 25 mg tablet pantoprazole 40 mg tablet,delayed 40 mg PO DAILY 03/0405/26/23 Unknown History release trazodone 100 mg tablet 100 mg PO DAILY 03/04/2303/10 Unknown History amlodipine 5 mg tablet mg 03/13/25 Unknown History ciprofloxacin HCl 500 mg tablet mg 03/13/25 Unknown H istory ergocalciferol (vitamin D2) 1,250 03/13/25 Unknown H istory mcg (50,000 unit) capsule fluticasone propionate 50 intranasal 03/13/25 Unknown History mcg/actuation nasal spray,suspension methocarbamol 750 mg tablet mg 03/13/25 Unknown Histo ry metronidazole 500 mg tablet mg 03/13/25 Unknown Histo ry ondansetron 4 mg disintegrating mg 03/13/25 Unknown H istory tablet oxycodone-acetaminophen 5 mg-325 tablet 03/13/25 Unkn own History mg tablet Allergies Allergy/AdvReac Type Severity Reaction Status Date / Time Penicillins Allergy Unknown Swelling Verified 05/26/23 08:48 Review of Systems Review of Systems: CONSTITUTIONAL: Reports chills. Denies fever. EYES: Denies visual changes, redness, or discharge. ENT: Denies rhinorrhea, congestion, sore throat, or otalgia. CARDIOVASCULAR: Denies chest pain, palpitations, or edema. RESPIRATORY: Denies cough or dyspnea. GASTROINTESTINAL: Reports abdominal pain, nausea, vomiting, diarrhea. GENITOURINARY: Denies dysuria or hematuria. SKIN: Denies rash or itching. MUSCULOSKELETAL: Denies back pain, joint pain, or myalgia. NEUROLOGIC: Denies headache, numbness, dizziness, or weakness. PSYCHIATRIC: Denies anxiety or depression. [facility] Past Medical History Medical History Tarsal tunnel syndrome of left side surgical repair Hyperlipidemia Emphysema lung Arthritis GERD (gastroesophageal reflux disease) Diabetes Hypertension Surgical History Surgical History H/O tubal ligation History of hysterectomy Social History Social History Smoking status: Former smoker Additional smoking assessment comments: quit 2 months ago, smoked for 40 years Alcohol intake: unknown Substance use type: does not use Gender identity (if verbalized by the patient): Female Exam Narrative: GENERAL: Well-appearing, well-nourished, and in no acute distress. HEAD: Normocephalic, atraumatic. EYES: PERRLA and EOMI. ENT: Nares clear, no rhinorrhea or epistaxis. Mucous membranes moist. Oropharynx without tonsillar hypertrophy exudate or other lesions. Bilateral TMs pearly rush nonbulging NECK: Supple. No adenopathy or masses. No carotid bruits or JVD CHEST: Clear to auscultation. No respiratory distress. No wheezes rales or rhonchi HEART: Regular rate and rhythm. No murmur heard. Normal peripheral pulses. ABDOMEN: Soft, nondistended, normal active bowel sounds. Mild tenderness in LLQ without rebound or guarding EXTREMITIES: Normal range of motion. No edema. SKIN: Warm, dry, no rash. NEURO: No focal deficits. Alert and oriented x3. PSYCH: Normal mood and affect. Course Course Emergency Course: This is a 64 year old female who presented for evaluation of nausea, vomiting and diarrhea with a recent diagnosis of diverticulitis. She was given Zofran while here. Her symptoms improved. She passed a p.o. challenge. She felt well enough to go home. Will dc with grace. Advised to return to the ER in the event that she has recurrence of symptoms and is unable to keep abx/food down. She will follow-up with her GI provider. She is in agreement with plan of care. Level of Care: Express Care Visit Vital Signs Vital signs: Vital Signs Temperature 36.3 C L 03/13/25 08:23 Pulse Rate 64 03/13/25 08:23 Respiratory Rate 16 03/13/25 08:23 Blood Pressure 141/89 H 03/13/25 08:23 Pulse Oximetry 99 03/13/25 08:23 Oxygen Delivery Room Air 03/13/25 08:23 Temperature 36.3 C L 03/13/25 08:23 Pulse Rate 64 03/13/25 08:23 Respiratory Rate 16 03/13/25 08:23 Blood Pressure 141/89 H 03/13/25 08:23 Pulse Oximetry 99 03/13/25 08:23 Oxygen Delivery Room Air 03/13/25 08:23 MDM - Abdominal Pain Lab Data Labs: Lab Results 03/13/25 Range/Units 08:36 POC Capillary Glucose 160 H (65-105) mg/dl Discharge Plan Discharge Clinical Impression: Diverticulitis, Nausea & vomiting Patient Disposition: Home Condition: Stable Instructions: Antibiotic Form, Diverticulitis (DC), Acute Nausea and Vomiting (DC) Patient Language: Italian Prescriptions: New ondansetron 4 mg tablet,disintegrating 4 mg PO Q4H PRN (Reason: nausea and vomiting) Qty: 20 0RF No Action metronidazole 500 mg tablet amlodipine 5 mg tablet ciprofloxacin HCl 500 mg tablet oxycodone-acetaminophen 5-325 mg tablet methocarbamol 750 mg tablet ergocalciferol (vitamin D2) 1,250 mcg (50,000 unit) capsule ondansetron 4 mg tablet,disintegrating fluticasone propionate 50 mcg/actuation spray,suspension INTRANASAL atorvastatin 20 mg tablet 20 mg PO DAILY trazodone 100 mg tablet 100 mg PO DAILY pantoprazole 40 mg tablet,delayed release (DR/EC) 40 mg PO DAILY lisinopril-hydrochlorothiazide 20-25 mg tablet 1 tablet PO DAILY Follow-up/Referrals: Tabitha Harris RN [Primary Care Provider, Nursing] Stand Alone Forms: Work/School Release IP Time of Disposition: 09:43
[2025-03-13] MEDS: ONDANSETRON HCL ODT 4 MG TABLET PO (08:34)
== END 2025-03-13 09:48 | disposition home or self-care (01) ==
PROVIDERS: Emergency Provider Nurse Practitioner
DX: K57.92 Diverticulitis of intestine, part unspecified, without perforation or abscess without bleeding (principal); R11.2 Nausea with vomiting, unspecified; Z87.891 Personal history of nicotine dependence; I10 Essential (primary) hypertension; E11.9 Type 2 diabetes mellitus without complications; K21.9 Gastro-esophageal reflux disease without esophagitis; M19.90 Unspecified osteoarthritis, unspecified site; E78.5 Hyperlipidemia, unspecified; J43.9 Emphysema, unspecified
CPT/HCPCS: 82948; 99213; A9270; G0463